=== PATIENT | female | born 1955 | race Caucasian/White ===

== ENCOUNTER 2016-08-27 05:39 | Inpatient (IN) | payer MEDICARE ==
[~2016-08-27 05:39] MED LIST: ADVIL200 M3 PO; CALCIUM CARBON500 M2 PO; CALMOSEPTINE OI71 G1 TP; COPAXONE20 MG/1 ML SC; COPAXONE40 MG/1 M1 SQ; COPAXONE40 MG/1 ML SQ; GUAIFENESIN ER600 MG PO; KEFLEX500 M1 PO; LASIX20 MG PO; LASIX40 M1 PO; MIRALAX17 G1 PO; MIRALAX17 G2 PO; MUCINEX600 MG PO; MULTIVITAMINS1 EAC6 PO; NYSTOP15 GM TP; NYSTOP60 GM EXT; POTASSIUM CHLO20 ME3 PO; POTASSIUM PO; SULFAMYLON453.6 GM TP; TYLENOL325 M2 PO; TYLENOL325 MG PO; VITAMIN D31000 UNI3 PO
[2016-08-27] MEDS ORDERED: MUCINEX600 M1 PO (06:07)
[2016-08-27] MEDS ORDERED: SIMETHICONE80 M3 PO (06:07)
[2016-08-27] MEDS ORDERED: ZOFRAN ODT4 MG PO (06:08)
[2016-08-27] MEDS ORDERED: AMBIEN5 M1 PO (06:09)
[2016-08-27] MEDS ORDERED: NORCO 5-325 TA1 EACH PO (06:10)
[2016-08-27] MEDS ORDERED: VITAMIN AND MI1 EACH PO (06:10)
[2016-08-27] MEDS ORDERED: CALCIUM CARBON500 M2 PO (06:11)
[2016-08-27] MEDS ORDERED: TYLENOL325 M2 PO (06:12)
[2016-08-27] MEDS ORDERED: MILK OF MAGNESIA PO (06:13)
[2016-08-27] MEDS ORDERED: BISCOLAX10 MG PR (06:14)
[2016-08-27 06:44] LABS: BASO % 0.3 % (0-2); EOS % 2.2 % (0-7); EOSINOPHIL ABSOLUTE COUNT 0.2 tho/cmm (0.0-0.7); HCT-HEMATOCRIT 39.5 % (34.0-49.0); HGB-HEMOGLOBIN 12.8 gm/dl (12.0-15.5); IMMATURE GRANULOCYTES ABSOLUTE 0.04 tho/cmm (0-0.03); IMMATURE GRANULOCYTES PERCENT 0.4 % (0-0.3); LYMPH % 15.2 % (20-45); LYMPH ABSOLUTE COUNT 1.5 tho/cmm (0.8-4.5); MCH (MEAN CORPUSCULAR HGB) 28.4 pg (28.0-32.0); MCHC MEAN CORPUSCULAR HGB CONC 32.4 % (32.0-36.0); MCV (MEAN CELL VOLUME) 87.6 fl (82.0-96.0); MONO % 8.2 % (0-12); MONOCYTE ABSOLUTE COUNT 0.8 tho/cmm (0.0-1.2); NEUTROPHIL ABSOLUTE COUNT 7.3 tho/cmm (1.6-8.0); NEUTROPHIL-AUTOMATED 7.3 tho/cmm (1.6-8.0); NEUTROPHILS % 73.7 % (40-80); PLATELET COUNT 311 tho/cmm (150-450); RED BLOOD COUNT 4.51 mil/cmm (4.00-5.20); RED CELL DISTRIBUTION WIDTH 14.1 % (12.4-16.4); WHITE BLOOD COUNT 9.9 tho/cmm (4.0-10.0)
[2016-08-27] MEDS ORDERED: CALMOSEPTINE OI71 G1 TP (10:56)
[2016-08-28 04:36] LABS: BASO % 0.2 % (0-2); EOS % 0.2 % (0-7); HGB-HEMOGLOBIN 11.3 gm/dl (12.0-15.5); IMMATURE GRANULOCYTES ABSOLUTE 0.04 tho/cmm (0-0.03); IMMATURE GRANULOCYTES PERCENT 0.3 % (0-0.3); LYMPH % 11.8 % (20-45); LYMPH ABSOLUTE COUNT 1.5 tho/cmm (0.8-4.5); MCH (MEAN CORPUSCULAR HGB) 28.2 pg (28.0-32.0); MCHC MEAN CORPUSCULAR HGB CONC 32.3 % (32.0-36.0); MCV (MEAN CELL VOLUME) 87.3 fl (82.0-96.0); MEAN PLATELET VOLUME 8.9 cmc (9.4-12.4); MONO % 11.6 % (0-12); MONOCYTE ABSOLUTE COUNT 1.5 tho/cmm (0.0-1.2); NEUTROPHIL ABSOLUTE COUNT 9.7 tho/cmm (1.6-8.0); NEUTROPHIL-AUTOMATED 9.7 tho/cmm (1.6-8.0); NEUTROPHILS % 75.9 % (40-80); PLATELET COUNT 311 tho/cmm (150-450); RED BLOOD COUNT 4.01 mil/cmm (4.00-5.20); RED CELL DISTRIBUTION WIDTH 14.1 % (12.4-16.4); WHITE BLOOD COUNT 12.7 tho/cmm (4.0-10.0)
[2016-08-28 04:42] LABS: ANION GAP 10 mmol/L (0-20); BLOOD UREA NITROGEN 9 mg/dl (6-24); CALCIUM 8.9 mg/dl (8.5-10.5); CARBON DIOXIDE-VENOUS 28 mmol/L (22-32); CHLORIDE 106 mmol/l (96-110); CREATININE 0.25 mg/dl (0.50-1.10); GLUCOSE 124 mg/dL (70-110); POTASSIUM 3.9 mmol/L (3.7-5.1); SODIUM 140 mmol/L (135-145); eGFR VALUE FOR BLACK >90 mL/Min
[2016-08-29 06:13] LABS: BASO % 0.2 % (0-2); EOS % 0.8 % (0-7); EOSINOPHIL ABSOLUTE COUNT 0.1 tho/cmm (0.0-0.7); HCT-HEMATOCRIT 34.9 % (34.0-49.0); HGB-HEMOGLOBIN 11.3 gm/dl (12.0-15.5); IMMATURE GRANULOCYTES ABSOLUTE 0.03 tho/cmm (0-0.03); IMMATURE GRANULOCYTES PERCENT 0.2 % (0-0.3); LYMPH % 9.9 % (20-45); LYMPH ABSOLUTE COUNT 1.4 tho/cmm (0.8-4.5); MCH (MEAN CORPUSCULAR HGB) 28.3 pg (28.0-32.0); MCHC MEAN CORPUSCULAR HGB CONC 32.4 % (32.0-36.0); MCV (MEAN CELL VOLUME) 87.3 fl (82.0-96.0); MEAN PLATELET VOLUME 9.1 cmc (9.4-12.4); MONO % 11.3 % (0-12); MONOCYTE ABSOLUTE COUNT 1.6 tho/cmm (0.0-1.2); NEUTROPHIL ABSOLUTE COUNT 10.7 tho/cmm (1.6-8.0); NEUTROPHIL-AUTOMATED 10.7 tho/cmm (1.6-8.0); NEUTROPHILS % 77.6 % (40-80); PLATELET COUNT 287 tho/cmm (150-450); RED CELL DISTRIBUTION WIDTH 14.3 % (12.4-16.4); WHITE BLOOD COUNT 13.8 tho/cmm (4.0-10.0)
[2016-08-29 06:27] LABS: ANION GAP 11 mmol/L (0-20); BLOOD UREA NITROGEN 6 mg/dl (6-24); CALCIUM 8.8 mg/dl (8.5-10.5); CARBON DIOXIDE-VENOUS 28 mmol/L (22-32); CHLORIDE 103 mmol/l (96-110); GLUCOSE 112 mg/dL (70-110); POTASSIUM 3.4 mmol/L (3.7-5.1); SODIUM 139 mmol/L (135-145); eGFR VALUE FOR BLACK >90 mL/Min
[2016-08-30 06:56] LABS: BASO % 0.3 % (0-2); EOSINOPHIL ABSOLUTE COUNT 0.2 tho/cmm (0.0-0.7); HCT-HEMATOCRIT 35.4 % (34.0-49.0); HGB-HEMOGLOBIN 11.4 gm/dl (12.0-15.5); IMMATURE GRANULOCYTES ABSOLUTE 0.04 tho/cmm (0-0.03); IMMATURE GRANULOCYTES PERCENT 0.4 % (0-0.3); LYMPH % 13.8 % (20-45); LYMPH ABSOLUTE COUNT 1.5 tho/cmm (0.8-4.5); MCHC MEAN CORPUSCULAR HGB CONC 32.2 % (32.0-36.0); MEAN PLATELET VOLUME 9.1 cmc (9.4-12.4); MONO % 11.3 % (0-12); MONOCYTE ABSOLUTE COUNT 1.2 tho/cmm (0.0-1.2); NEUTROPHIL ABSOLUTE COUNT 7.8 tho/cmm (1.6-8.0); NEUTROPHIL-AUTOMATED 7.8 tho/cmm (1.6-8.0); NEUTROPHILS % 72.2 % (40-80); PLATELET COUNT 297 tho/cmm (150-450); RED BLOOD COUNT 4.07 mil/cmm (4.00-5.20); WHITE BLOOD COUNT 10.7 tho/cmm (4.0-10.0)
[2016-08-30 07:03] LABS: ANION GAP 12 mmol/L (0-20); BLOOD UREA NITROGEN 7 mg/dl (6-24); CARBON DIOXIDE-VENOUS 26 mmol/L (22-32); CHLORIDE 103 mmol/l (96-110); GLUCOSE 102 mg/dL (70-110); SODIUM 137 mmol/L (135-145); eGFR VALUE FOR BLACK >90 mL/Min
[2016-08-31 05:30] LABS: BASO % 0.2 % (0-2); EOS % 2.7 % (0-7); EOSINOPHIL ABSOLUTE COUNT 0.3 tho/cmm (0.0-0.7); HCT-HEMATOCRIT 35.4 % (34.0-49.0); HGB-HEMOGLOBIN 11.4 gm/dl (12.0-15.5); IMMATURE GRANULOCYTES ABSOLUTE 0.03 tho/cmm (0-0.03); IMMATURE GRANULOCYTES PERCENT 0.3 % (0-0.3); LYMPH % 10.8 % (20-45); LYMPH ABSOLUTE COUNT 1.2 tho/cmm (0.8-4.5); MCH (MEAN CORPUSCULAR HGB) 27.9 pg (28.0-32.0); MCHC MEAN CORPUSCULAR HGB CONC 32.2 % (32.0-36.0); MCV (MEAN CELL VOLUME) 86.6 fl (82.0-96.0); NEUTROPHIL ABSOLUTE COUNT 8.4 tho/cmm (1.6-8.0); NEUTROPHIL-AUTOMATED 8.4 tho/cmm (1.6-8.0); PLATELET COUNT 322 tho/cmm (150-450); RED BLOOD COUNT 4.09 mil/cmm (4.00-5.20); RED CELL DISTRIBUTION WIDTH 13.8 % (12.4-16.4); WHITE BLOOD COUNT 10.9 tho/cmm (4.0-10.0)
[2016-08-31 05:44] LABS: ANION GAP 12 mmol/L (0-20); BLOOD UREA NITROGEN 8 mg/dl (6-24); CALCIUM 8.9 mg/dl (8.5-10.5); CARBON DIOXIDE-VENOUS 28 mmol/L (22-32); CHLORIDE 101 mmol/l (96-110); GLUCOSE 115 mg/dL (70-110); POTASSIUM 3.7 mmol/L (3.7-5.1); SODIUM 137 mmol/L (135-145)
[2016-08-31 05:45] LABS: CREATININE <0.20 mg/dl (0.50-1.10); eGFR VALUE FOR BLACK >90 mL/Min
[2016-09-01 05:38] LABS: BASO % 0.3 % (0-2); EOS % 2.4 % (0-7); EOSINOPHIL ABSOLUTE COUNT 0.2 tho/cmm (0.0-0.7); HCT-HEMATOCRIT 36.2 % (34.0-49.0); HGB-HEMOGLOBIN 11.8 gm/dl (12.0-15.5); IMMATURE GRANULOCYTES ABSOLUTE 0.03 tho/cmm (0-0.03); IMMATURE GRANULOCYTES PERCENT 0.3 % (0-0.3); LYMPH % 10.8 % (20-45); LYMPH ABSOLUTE COUNT 1.1 tho/cmm (0.8-4.5); MCH (MEAN CORPUSCULAR HGB) 28.2 pg (28.0-32.0); MCHC MEAN CORPUSCULAR HGB CONC 32.6 % (32.0-36.0); MCV (MEAN CELL VOLUME) 86.6 fl (82.0-96.0); MEAN PLATELET VOLUME 8.8 cmc (9.4-12.4); MONO % 9.2 % (0-12); MONOCYTE ABSOLUTE COUNT 0.9 tho/cmm (0.0-1.2); NEUTROPHIL ABSOLUTE COUNT 7.8 tho/cmm (1.6-8.0); NEUTROPHIL-AUTOMATED 7.8 tho/cmm (1.6-8.0); PLATELET COUNT 350 tho/cmm (150-450); RED BLOOD COUNT 4.18 mil/cmm (4.00-5.20); RED CELL DISTRIBUTION WIDTH 13.8 % (12.4-16.4); WHITE BLOOD COUNT 10.1 tho/cmm (4.0-10.0)
[2016-09-01 05:51] LABS: ANION GAP 11 mmol/L (0-20); BLOOD UREA NITROGEN 7 mg/dl (6-24); CARBON DIOXIDE-VENOUS 28 mmol/L (22-32); CHLORIDE 103 mmol/l (96-110); CREATININE 0.23 mg/dl (0.50-1.10); GLUCOSE 113 mg/dL (70-110); POTASSIUM 4.2 mmol/L (3.7-5.1); SODIUM 138 mmol/L (135-145); eGFR VALUE FOR BLACK >90 mL/Min
[2016-09-02 05:34] LABS: BASO % 0.3 % (0-2); EOS % 3.3 % (0-7); EOSINOPHIL ABSOLUTE COUNT 0.3 tho/cmm (0.0-0.7); HCT-HEMATOCRIT 35.6 % (34.0-49.0); HGB-HEMOGLOBIN 11.5 gm/dl (12.0-15.5); IMMATURE GRANULOCYTES ABSOLUTE 0.06 tho/cmm (0-0.03); IMMATURE GRANULOCYTES PERCENT 0.6 % (0-0.3); LYMPH % 11.7 % (20-45); LYMPH ABSOLUTE COUNT 1.2 tho/cmm (0.8-4.5); MCH (MEAN CORPUSCULAR HGB) 27.8 pg (28.0-32.0); MCHC MEAN CORPUSCULAR HGB CONC 32.3 % (32.0-36.0); MCV (MEAN CELL VOLUME) 86.2 fl (82.0-96.0); MEAN PLATELET VOLUME 8.7 cmc (9.4-12.4); MONO % 10.1 % (0-12); NEUTROPHIL ABSOLUTE COUNT 7.5 tho/cmm (1.6-8.0); NEUTROPHIL-AUTOMATED 7.5 tho/cmm (1.6-8.0); PLATELET COUNT 377 tho/cmm (150-450); RED BLOOD COUNT 4.13 mil/cmm (4.00-5.20); RED CELL DISTRIBUTION WIDTH 13.8 % (12.4-16.4); WHITE BLOOD COUNT 10.1 tho/cmm (4.0-10.0)
[2016-09-02 05:53] LABS: CHLORIDE 104 mmol/l (96-110); POTASSIUM 3.9 mmol/L (3.7-5.1); SODIUM 140 mmol/L (135-145)
[2016-09-02 07:14] LABS: ANION GAP 13 mmol/L (0-20); BLOOD UREA NITROGEN 10 mg/dl (6-24); CALCIUM 9.1 mg/dl (8.5-10.5); CARBON DIOXIDE-VENOUS 27 mmol/L (22-32); CREATININE 0.23 mg/dl (0.50-1.10); GLUCOSE 112 mg/dL (70-110); eGFR VALUE FOR BLACK >90 mL/Min
[2016-09-03 05:36] LABS: BASO % 0.4 % (0-2); EOS % 3.5 % (0-7); EOSINOPHIL ABSOLUTE COUNT 0.3 tho/cmm (0.0-0.7); HCT-HEMATOCRIT 36.3 % (34.0-49.0); HGB-HEMOGLOBIN 11.6 gm/dl (12.0-15.5); IMMATURE GRANULOCYTES ABSOLUTE 0.03 tho/cmm (0-0.03); IMMATURE GRANULOCYTES PERCENT 0.3 % (0-0.3); LYMPH % 16.1 % (20-45); LYMPH ABSOLUTE COUNT 1.5 tho/cmm (0.8-4.5); MCH (MEAN CORPUSCULAR HGB) 27.6 pg (28.0-32.0); MCV (MEAN CELL VOLUME) 86.2 fl (82.0-96.0); MEAN PLATELET VOLUME 8.9 cmc (9.4-12.4); MONO % 9.6 % (0-12); MONOCYTE ABSOLUTE COUNT 0.9 tho/cmm (0.0-1.2); NEUTROPHIL ABSOLUTE COUNT 6.5 tho/cmm (1.6-8.0); NEUTROPHIL-AUTOMATED 6.5 tho/cmm (1.6-8.0); NEUTROPHILS % 70.1 % (40-80); PLATELET COUNT 411 tho/cmm (150-450); RED BLOOD COUNT 4.21 mil/cmm (4.00-5.20); RED CELL DISTRIBUTION WIDTH 13.6 % (12.4-16.4); WHITE BLOOD COUNT 9.2 tho/cmm (4.0-10.0)
[2016-09-03 06:16] LABS: ANION GAP 12 mmol/L (0-20); BLOOD UREA NITROGEN 12 mg/dl (6-24); CALCIUM 9.1 mg/dl (8.5-10.5); CARBON DIOXIDE-VENOUS 29 mmol/L (22-32); CHLORIDE 101 mmol/l (96-110); CREATININE 0.22 mg/dl (0.50-1.10); GLUCOSE 101 mg/dL (70-110); SODIUM 138 mmol/L (135-145); eGFR VALUE FOR BLACK >90 mL/Min
[2016-09-04 05:51] LABS: HGB-HEMOGLOBIN 14.1 gm/dl (12.0-15.5); PLATELET COUNT 540 tho/cmm (150-450)
[2016-09-05 19:21] LABS: BASO % 0.1 % (0-2); EOS % 4.4 % (0-7); EOSINOPHIL ABSOLUTE COUNT 0.9 tho/cmm (0.0-0.7); HCT-HEMATOCRIT 36.4 % (34.0-49.0); HGB-HEMOGLOBIN 11.9 gm/dl (12.0-15.5); IMMATURE GRANULOCYTES ABSOLUTE 0.15 tho/cmm (0-0.03); IMMATURE GRANULOCYTES PERCENT 0.8 % (0-0.3); LYMPH % 6.4 % (20-45); LYMPH ABSOLUTE COUNT 1.3 tho/cmm (0.8-4.5); MCH (MEAN CORPUSCULAR HGB) 27.9 pg (28.0-32.0); MCHC MEAN CORPUSCULAR HGB CONC 32.7 % (32.0-36.0); MCV (MEAN CELL VOLUME) 85.4 fl (82.0-96.0); MEAN PLATELET VOLUME 8.6 cmc (9.4-12.4); MONO % 6.2 % (0-12); MONOCYTE ABSOLUTE COUNT 1.2 tho/cmm (0.0-1.2); NEUTROPHIL ABSOLUTE COUNT 16.3 tho/cmm (1.6-8.0); NEUTROPHIL-AUTOMATED 16.3 tho/cmm (1.6-8.0); NEUTROPHILS % 82.1 % (40-80); PLATELET COUNT 492 tho/cmm (150-450); RED BLOOD COUNT 4.26 mil/cmm (4.00-5.20); RED CELL DISTRIBUTION WIDTH 13.6 % (12.4-16.4)
[2016-09-05 19:25] LABS: WHITE BLOOD COUNT 19.8 tho/cmm (4.0-10.0)
[2016-09-05 19:34] LABS: ANION GAP 12 mmol/L (0-20); BLOOD UREA NITROGEN 17 mg/dl (6-24); CALCIUM 8.5 mg/dl (8.5-10.5); CARBON DIOXIDE-VENOUS 26 mmol/L (22-32); CHLORIDE 97 mmol/l (96-110); CREATININE 0.42 mg/dl (0.50-1.10); GLUCOSE 143 mg/dL (70-110); SODIUM 131 mmol/L (135-145); eGFR VALUE FOR BLACK >90 mL/Min
[2016-09-06 06:14] LABS: BASO % 0.1 % (0-2); EOS % 7.3 % (0-7); HCT-HEMATOCRIT 33.5 % (34.0-49.0); HGB-HEMOGLOBIN 10.9 gm/dl (12.0-15.5); IMMATURE GRANULOCYTES ABSOLUTE 0.13 tho/cmm (0-0.03); IMMATURE GRANULOCYTES PERCENT 0.9 % (0-0.3); LYMPH % 10.8 % (20-45); LYMPH ABSOLUTE COUNT 1.5 tho/cmm (0.8-4.5); MCH (MEAN CORPUSCULAR HGB) 27.7 pg (28.0-32.0); MCHC MEAN CORPUSCULAR HGB CONC 32.5 % (32.0-36.0); MEAN PLATELET VOLUME 8.5 cmc (9.4-12.4); MONO % 8.3 % (0-12); MONOCYTE ABSOLUTE COUNT 1.2 tho/cmm (0.0-1.2); NEUTROPHIL ABSOLUTE COUNT 10.1 tho/cmm (1.6-8.0); NEUTROPHIL-AUTOMATED 10.1 tho/cmm (1.6-8.0); NEUTROPHILS % 72.6 % (40-80); PLATELET COUNT 465 tho/cmm (150-450); RED BLOOD COUNT 3.94 mil/cmm (4.00-5.20); RED CELL DISTRIBUTION WIDTH 13.7 % (12.4-16.4); WHITE BLOOD COUNT 13.9 tho/cmm (4.0-10.0)
[2016-09-06 06:26] LABS: ANION GAP 9 mmol/L (0-20); BLOOD UREA NITROGEN 13 mg/dl (6-24); CALCIUM 8.4 mg/dl (8.5-10.5); CARBON DIOXIDE-VENOUS 30 mmol/L (22-32); CHLORIDE 97 mmol/l (96-110); CREATININE 0.23 mg/dl (0.50-1.10); GLUCOSE 100 mg/dL (70-110); SODIUM 132 mmol/L (135-145); eGFR VALUE FOR BLACK >90 mL/Min
[2016-09-07 05:41] LABS: BASO % 0.2 % (0-2); EOS % 0.8 % (0-7); EOSINOPHIL ABSOLUTE COUNT 0.1 tho/cmm (0.0-0.7); HCT-HEMATOCRIT 31.6 % (34.0-49.0); HGB-HEMOGLOBIN 10.1 gm/dl (12.0-15.5); IMMATURE GRANULOCYTES ABSOLUTE 0.22 tho/cmm (0-0.03); IMMATURE GRANULOCYTES PERCENT 1.7 % (0-0.3); LYMPH % 10.1 % (20-45); LYMPH ABSOLUTE COUNT 1.3 tho/cmm (0.8-4.5); MCH (MEAN CORPUSCULAR HGB) 27.4 pg (28.0-32.0); MCV (MEAN CELL VOLUME) 85.9 fl (82.0-96.0); MEAN PLATELET VOLUME 8.6 cmc (9.4-12.4); MONO % 9.5 % (0-12); MONOCYTE ABSOLUTE COUNT 1.2 tho/cmm (0.0-1.2); NEUTROPHIL ABSOLUTE COUNT 10.1 tho/cmm (1.6-8.0); NEUTROPHIL-AUTOMATED 10.1 tho/cmm (1.6-8.0); NEUTROPHILS % 77.7 % (40-80); PLATELET COUNT 461 tho/cmm (150-450); RED BLOOD COUNT 3.68 mil/cmm (4.00-5.20); RED CELL DISTRIBUTION WIDTH 13.9 % (12.4-16.4); WHITE BLOOD COUNT 12.9 tho/cmm (4.0-10.0)
[2016-09-07 05:58] LABS: ANION GAP 9 mmol/L (0-20); BLOOD UREA NITROGEN 10 mg/dl (6-24); CALCIUM 8.7 mg/dl (8.5-10.5); CARBON DIOXIDE-VENOUS 30 mmol/L (22-32); CHLORIDE 103 mmol/l (96-110); CREATININE 0.22 mg/dl (0.50-1.10); GLUCOSE 117 mg/dL (70-110); POTASSIUM 4.4 mmol/L (3.7-5.1); SODIUM 138 mmol/L (135-145); eGFR VALUE FOR BLACK >90 mL/Min
[2016-09-08 08:41] LABS: BASO % 0.2 % (0-2); EOS % 7.1 % (0-7); HCT-HEMATOCRIT 31.8 % (34.0-49.0); HGB-HEMOGLOBIN 10.2 gm/dl (12.0-15.5); IMMATURE GRANULOCYTES ABSOLUTE 0.17 tho/cmm (0-0.03); IMMATURE GRANULOCYTES PERCENT 1.3 % (0-0.3); LYMPH % 13.5 % (20-45); LYMPH ABSOLUTE COUNT 1.8 tho/cmm (0.8-4.5); MCH (MEAN CORPUSCULAR HGB) 27.8 pg (28.0-32.0); MCHC MEAN CORPUSCULAR HGB CONC 32.1 % (32.0-36.0); MCV (MEAN CELL VOLUME) 86.6 fl (82.0-96.0); MEAN PLATELET VOLUME 8.3 cmc (9.4-12.4); MONO % 7.6 % (0-12); NEUTROPHIL ABSOLUTE COUNT 9.6 tho/cmm (1.6-8.0); NEUTROPHIL-AUTOMATED 9.6 tho/cmm (1.6-8.0); NEUTROPHILS % 70.3 % (40-80); PLATELET COUNT 426 tho/cmm (150-450); RED BLOOD COUNT 3.67 mil/cmm (4.00-5.20); WHITE BLOOD COUNT 13.6 tho/cmm (4.0-10.0)
[2016-09-08 08:55] LABS: ALB/GLOB RATIO 0.7 (0.8-2.0); ALBUMIN 2.5 g/dl (3.5-5.0); ALKALINE PHOSPHATASE 81 U/L (33-138); ALT/SGPT 27 U/L (12-78); ANION GAP 12 mmol/L (0-20); AST/SGOT 26 U/L (10-40); BILIRUBIN,TOTAL 0.1 mg/dl (0-1.5); BLOOD UREA NITROGEN 11 mg/dl (6-24); CALCIUM 8.4 mg/dl (8.5-10.5); CARBON DIOXIDE-VENOUS 29 mmol/L (22-32); CHLORIDE 103 mmol/l (96-110); CREATININE 0.26 mg/dl (0.50-1.10); GLUCOSE 103 mg/dL (70-110); POTASSIUM 3.8 mmol/L (3.7-5.1); SODIUM 140 mmol/L (135-145); eGFR VALUE FOR BLACK >90 mL/Min
[2016-09-10 05:40] LABS: BASO % 0.2 % (0-2); EOS % 5.8 % (0-7); EOSINOPHIL ABSOLUTE COUNT 0.8 tho/cmm (0.0-0.7); IMMATURE GRANULOCYTES ABSOLUTE 0.23 tho/cmm (0-0.03); IMMATURE GRANULOCYTES PERCENT 1.6 % (0-0.3); LYMPH ABSOLUTE COUNT 1.7 tho/cmm (0.8-4.5); MCH (MEAN CORPUSCULAR HGB) 27.9 pg (28.0-32.0); MCHC MEAN CORPUSCULAR HGB CONC 32.3 % (32.0-36.0); MCV (MEAN CELL VOLUME) 86.4 fl (82.0-96.0); MEAN PLATELET VOLUME 8.4 cmc (9.4-12.4); MONOCYTE ABSOLUTE COUNT 1.5 tho/cmm (0.0-1.2); NEUTROPHIL ABSOLUTE COUNT 10.2 tho/cmm (1.6-8.0); NEUTROPHIL-AUTOMATED 10.2 tho/cmm (1.6-8.0); NEUTROPHILS % 70.4 % (40-80); PLATELET COUNT 458 tho/cmm (150-450); RED BLOOD COUNT 3.59 mil/cmm (4.00-5.20); RED CELL DISTRIBUTION WIDTH 14.2 % (12.4-16.4); WHITE BLOOD COUNT 14.5 tho/cmm (4.0-10.0)
[2016-09-10 05:44] LABS: ANION GAP 10 mmol/L (0-20); BLOOD UREA NITROGEN 8 mg/dl (6-24); CALCIUM 8.3 mg/dl (8.5-10.5); CARBON DIOXIDE-VENOUS 30 mmol/L (22-32); CHLORIDE 103 mmol/l (96-110); GLUCOSE 102 mg/dL (70-110); SODIUM 139 mmol/L (135-145)
[2016-09-10 05:58] LABS: CREATININE <0.20 mg/dl (0.50-1.10); eGFR VALUE FOR BLACK >90 mL/Min
[2016-09-11 05:53] LABS: BASO % 0.1 % (0-2); HCT-HEMATOCRIT 33.9 % (34.0-49.0); HGB-HEMOGLOBIN 10.8 gm/dl (12.0-15.5); IMMATURE GRANULOCYTES ABSOLUTE 0.18 tho/cmm (0-0.03); IMMATURE GRANULOCYTES PERCENT 1.6 % (0-0.3); LYMPH % 8.1 % (20-45); LYMPH ABSOLUTE COUNT 0.9 tho/cmm (0.8-4.5); MCH (MEAN CORPUSCULAR HGB) 27.8 pg (28.0-32.0); MCHC MEAN CORPUSCULAR HGB CONC 31.9 % (32.0-36.0); MCV (MEAN CELL VOLUME) 87.1 fl (82.0-96.0); MEAN PLATELET VOLUME 8.5 cmc (9.4-12.4); MONO % 4.4 % (0-12); MONOCYTE ABSOLUTE COUNT 0.5 tho/cmm (0.0-1.2); NEUTROPHIL ABSOLUTE COUNT 9.8 tho/cmm (1.6-8.0); NEUTROPHIL-AUTOMATED 9.8 tho/cmm (1.6-8.0); NEUTROPHILS % 85.8 % (40-80); PLATELET COUNT 486 tho/cmm (150-450); RED BLOOD COUNT 3.89 mil/cmm (4.00-5.20); RED CELL DISTRIBUTION WIDTH 14.4 % (12.4-16.4); WHITE BLOOD COUNT 11.4 tho/cmm (4.0-10.0)
[2016-09-11 06:05] LABS: ANION GAP 11 mmol/L (0-20); BLOOD UREA NITROGEN 5 mg/dl (6-24); CALCIUM 8.7 mg/dl (8.5-10.5); CARBON DIOXIDE-VENOUS 27 mmol/L (22-32); CHLORIDE 107 mmol/l (96-110); GLUCOSE 148 mg/dL (70-110); POTASSIUM 4.3 mmol/L (3.7-5.1); SODIUM 141 mmol/L (135-145)
[2016-09-11 06:08] LABS: CREATININE <0.20 mg/dl (0.50-1.10); eGFR VALUE FOR BLACK >90 mL/Min
[2016-11-12] MEDS ORDERED: CYMBALTA30 M1 PO (15:01)
[2016-11-12] MEDS ORDERED: MOBIC7.5 M2 PO (15:01)
[2016-11-12] MEDS ORDERED: SWEEN 24255 GM TP (15:02)
[2016-11-12] MEDS ORDERED: IBUPROFEN200 M2 PO (15:03)
== END 2016-09-11 15:31 | DRG 573 ==
LOC: SHSC 05:39 → BURN 09:55
PROVIDERS: Anesthesiology; Surgery; ADMIT Surgery
PROC: 0HRMXK3 Replacement of Right Foot Skin with Nonautologous Tissue Substitute, Full Thickness, External Approach (ICD-10-PCS; principal; 2016-08-27)
PROC: 0HRNXK3 Replacement of Left Foot Skin with Nonautologous Tissue Substitute, Full Thickness, External Approach (ICD-10-PCS; principal; 2016-08-27)
PROC: 0JX90ZC Transfer Buttock Subcutaneous Tissue and Fascia with Skin, Subcutaneous Tissue and Fascia, Open Approach (ICD-10-PCS; principal; 2016-08-27)
PROC: 0QB Lower Bones, Excision (ICD-10-PCS; principal; 2016-08-27)
PROC: 0HRHX74 Replacement of Right Upper Leg Skin with Autologous Tissue Substitute, Partial Thickness, External Approach (ICD-10-PCS; principal; 2016-08-27)
PROC: 05HC33Z Insertion of Infusion Device into Left Basilic Vein, Percutaneous Approach (ICD-10-PCS; 2016-09-04)
PROC: B54NZZA Ultrasonography of Left Upper Extremity Veins, Guidance (ICD-10-PCS; 2016-09-04)
PROC: 0QB Lower Bones, Excision (ICD-10-PCS; 2016-09-06)
PROC: 0JBR0ZZ Excision of Left Foot Subcutaneous Tissue and Fascia, Open Approach (ICD-10-PCS; 2016-09-06)
PROC: 0JBQ0ZZ Excision of Right Foot Subcutaneous Tissue and Fascia, Open Approach (ICD-10-PCS; 2016-09-06)
PROC: 0HRMXK4 Replacement of Right Foot Skin with Nonautologous Tissue Substitute, Partial Thickness, External Approach (ICD-10-PCS; 2016-09-06)
PROC: 0JB70ZZ Excision of Back Subcutaneous Tissue and Fascia, Open Approach (ICD-10-PCS; 2016-09-06)
PROC: 0J993ZZ Drainage of Buttock Subcutaneous Tissue and Fascia, Percutaneous Approach (ICD-10-PCS; 2016-09-06)
PROC: 0HRNXK4 Replacement of Left Foot Skin with Nonautologous Tissue Substitute, Partial Thickness, External Approach (ICD-10-PCS; 2016-09-06)
PROC: 0JBR0ZZ Excision of Left Foot Subcutaneous Tissue and Fascia, Open Approach (ICD-10-PCS; 2016-09-10)
PROC: 0JBQ0ZZ Excision of Right Foot Subcutaneous Tissue and Fascia, Open Approach (ICD-10-PCS; 2016-09-10)
PROC: 0JB70ZZ Excision of Back Subcutaneous Tissue and Fascia, Open Approach (ICD-10-PCS; 2016-09-10)
DX: L89.154 Pressure ulcer of sacral region, stage 4 (principal); I96 Gangrene, not elsewhere classified; L89.613 Pressure ulcer of right heel, stage 3; L89.623 Pressure ulcer of left heel, stage 3; Z68.41 Body mass index [BMI] 40.0-44.9, adult; L76.32 Postprocedural hematoma of skin and subcutaneous tissue following other procedure; D64.9 Anemia, unspecified; E66.01 Morbid (severe) obesity due to excess calories; F41.9 Anxiety disorder, unspecified; G35 Multiple sclerosis; G89.29 Other chronic pain; I10 Essential (primary) hypertension; S71.101A Unspecified open wound, right thigh, initial encounter; Z90.710 Acquired absence of both cervix and uterus; F44.4 Conversion disorder with motor symptom or deficit
CPT/HCPCS: C1751; J0171; J1200; J1335; J1580; J1595; J1650; J2250; J2270; J2405; J3010; J3370; J7030; J7999; P9045; Q4100